=== PATIENT | male | born 1975 | race Caucasian/White ===

== ENCOUNTER 2023-01-15 08:00 | Outpatient (RCR) | payer OTHER ==
[2022-12-22 09:41] VITALS: BP 120/77; PULSE 69; TEMP 98.3
--- NOTE | 2022-12-22 11:15 | NUR ---
Pt remained in room following initial rocephin administration. He tolerated well, no s/s of reaction. PICC wrapped with JULIEN, pt exits dept on knee scooter.
[2022-12-23 08:54] VITALS: BP 156/105; PULSE 80; TEMP 98.5
[2022-12-24 09:03] VITALS: BP 128/88; PULSE 77; TEMP 98.7
[2022-12-25 08:56] VITALS: BP 154/104; PULSE 73; TEMP 98.6
[2022-12-26 09:02] VITALS: BP 142/97; PULSE 75; TEMP 98.1
[2022-12-27 09:25] VITALS: BP 144/104; PULSE 84; TEMP 98.7
[2022-12-27 09:40] LABS: BASO # 0.1 K/mm3 (0.0-0.2); EOS # 0.3 K/mm3 (0.0-0.7); EOS % 6.2 % (0.0-4.0); GRAN # 2.6 K/mm3 (1.4-6.5); GRAN % 53.4 % (42.2-75.2); HEMATOCRIT 42.3 % (42.0-52.0); HEMOGLOBIN 14.6 g/dl (13.5-18.0); LYMPH # 1.5 K/mm3 (1.2-3.4); MEAN CELL VOLUME 91 fl (80.0-100.0); MEAN CORPUSCULAR HEMOGLOBIN 32 pg (27-31); MEAN CORPUSCULAR HGB CONC 35 g/dl (33.0-37.0); MEAN PLATELET VOLUME 10.6 fl (7.4-10.4); MONO # 0.4 K/mm3 (0.1-0.6); MONO % 8.2 % (1.7-9.3); PLATELET COUNT 245 K/mm3 (130-400); RED BLOOD COUNT 4.63 M/mm3 (4.20-5.60); REDCELL DISTRIBUTION WIDTH-CV 12.4 % (11.5-14.5)
[2022-12-27 09:57] LABS: BILIRUBIN,TOTAL 0.8 mg/dL (0.2-1.2); C-REACTIVE PROTEIN 0.04 mg/dL (0.00-0.50); CALCIUM 9.3 mg/dL (8.4-10.2); CREATININE, serum 0.99 mg/dL (0.72-1.25); POTASSIUM 4.2 mmol/L (3.5-4.5); TOTAL PROTEIN 7.2 gm/dL (6.2-8.1)
[2022-12-27 10:13] LABS: ERYTHROCYTE SEDIMENTATION RATE 1 mm/hr (0-15)
[2022-12-28 08:44] VITALS: BP 138/91; PULSE 104; TEMP 98.7
[2022-12-29 08:40] VITALS: BP 129/73; PULSE 97; TEMP 98.1
[2022-12-30 08:18] VITALS: BP 127/89; PULSE 95; TEMP 99
[2022-12-31 08:23] VITALS: BP 125/89; PULSE 101; TEMP 98.6
[2023-01-02 09:06] VITALS: BP 120/85; PULSE 101; TEMP 98
[2023-01-03 08:23] VITALS: BP 123/87; PULSE 101; TEMP 98.5
[2023-01-03 08:31] LABS: HEMATOCRIT 44.2 % (42.0-52.0); HEMOGLOBIN 15.5 g/dl (13.5-18.0); MEAN CELL VOLUME 91 fl (80.0-100.0); MEAN CORPUSCULAR HEMOGLOBIN 32 pg (27-31); MEAN CORPUSCULAR HGB CONC 35 g/dl (33.0-37.0); MEAN PLATELET VOLUME 10.5 fl (7.4-10.4); PLATELET COUNT 235 K/mm3 (130-400); RED BLOOD COUNT 4.87 M/mm3 (4.20-5.60); REDCELL DISTRIBUTION WIDTH-CV 12.2 % (11.5-14.5)
[2023-01-03 08:48] LABS: BILIRUBIN,TOTAL 0.9 mg/dL (0.2-1.2); C-REACTIVE PROTEIN 0.06 mg/dL (0.00-0.50); CALCIUM 9.3 mg/dL (8.4-10.2); CREATININE, serum 1.01 mg/dL (0.72-1.25); POTASSIUM 3.6 mmol/L (3.5-4.5); TOTAL PROTEIN 7.5 gm/dL (6.2-8.1)
[2023-01-03 08:57] LABS: ERYTHROCYTE SEDIMENTATION RATE 1 mm/hr (0-15)
[2023-01-04 15:13] VITALS: BP 162/113; PULSE 120; TEMP 97.6
[2023-01-05 08:12] VITALS: BP 124/96; PULSE 112; TEMP 99
[2023-01-06 08:17] VITALS: BP 131/97; PULSE 109; TEMP 98.4
--- NOTE | 2023-01-07 09:00 | NUR ---
Pt called as he has not arrived yet for today's infusion. He states he just woke up, asks if he can come later this afternoon. Importance of keeping as close to daily schedule time as possible reviewed with pt. He expresses understanding and states he'll be in as soon as he's able.
[2023-01-07 13:15] VITALS: BP 155/102; PULSE 120; TEMP 98.4
[2023-01-08 08:47] VITALS: BP 120/88; PULSE 103; TEMP 98.2
[2023-01-09 08:40] VITALS: BP 163/82; PULSE 109; TEMP 98
[2023-01-10 08:21] VITALS: BP 119/87; PULSE 105; TEMP 98.8
[2023-01-10 08:40] LABS: BASO % 0.8 % (0.0-2.0); EOS # 0.1 K/mm3 (0.0-0.7); EOS % 3.4 % (0.0-4.0); GRAN # 2.2 K/mm3 (1.4-6.5); GRAN % 56.3 % (42.2-75.2); HEMATOCRIT 41.2 % (42.0-52.0); HEMOGLOBIN 14.9 g/dl (13.5-18.0); LYMPH # 1.1 K/mm3 (1.2-3.4); LYMPH % 28.4 % (20.0-51.0); MEAN CELL VOLUME 88 fl (80.0-100.0); MEAN CORPUSCULAR HEMOGLOBIN 32 pg (27-31); MEAN CORPUSCULAR HGB CONC 36 g/dl (33.0-37.0); MEAN PLATELET VOLUME 10.4 fl (7.4-10.4); MONO # 0.4 K/mm3 (0.1-0.6); MONO % 10.6 % (1.7-9.3); PLATELET COUNT 226 K/mm3 (130-400); REDCELL DISTRIBUTION WIDTH-CV 12.1 % (11.5-14.5)
[2023-01-10 09:00] LABS: ALBUMIN 4.4 gm/dL (3.5-5.0); BILIRUBIN,TOTAL 1.7 mg/dL (0.2-1.2); C-REACTIVE PROTEIN 0.11 mg/dL (0.00-0.50); CALCIUM 9.5 mg/dL (8.4-10.2); CREATININE, serum 1.04 mg/dL (0.72-1.25); TOTAL PROTEIN 7.6 gm/dL (6.2-8.1)
[2023-01-10 09:01] LABS: ERYTHROCYTE SEDIMENTATION RATE 4 mm/hr (0-15)
[2023-01-11 08:23] VITALS: BP 116/88; PULSE 90; TEMP 98.6
[2023-01-12 08:16] VITALS: BP 110/76; PULSE 87; TEMP 98.5
[2023-01-13 07:24] VITALS: BP 113/80; PULSE 80; TEMP 98.9
[2023-01-14 08:00] VITALS: BP 111/82; PULSE 79; TEMP 98.1
[~2023-01-15] VITALS: Ht 180.3 cm; Wt 117.8 kg
[~2023-01-15 08:00] MED LIST: ADDERALL XR30 MG PO; BUSPAR DIVIDOSE15 MG PO; COMPLETE MULTI1 TAB PO; HCTZ 25MG TAB25 MG PO; MOBIC15 MG PO; PERIACTIN 4MG TA4 MG PO; PHARMASSURE CHE30 MG PO; PRILOTC PO; PROBIOTIC BLEN1 EACH PO; ROCEPHIN 2GM VIAL21 IV; ZOLOFT 25MG25 MG PO
[2023-01-15 08:12] VITALS: BP 119/83; PULSE 78; TEMP 98.2
[2023-02-01] MEDS ORDERED: MOBIC15 MG PO (08:12)
== END 2023-01-15 08:16 | disposition home or self-care (01) ==
LOC: EUO 08:00
PROVIDERS: Internal Medicine
DX: Z45.2 Encounter for adjustment and management of vascular access device (principal); M86.172 Other acute osteomyelitis, left ankle and foot
CPT/HCPCS: C1751; J0696

== ENCOUNTER 2023-02-04 08:00 | Outpatient (RCR) | payer OTHER ==
[2023-01-16 08:50] VITALS: BP 116/87; PULSE 80; TEMP 98.7
[2023-01-17 08:16] LABS: BASO % 1.1 % (0.0-2.0); EOS # 0.3 K/mm3 (0.0-0.7); EOS % 8.2 % (0.0-4.0); GRAN # 1.9 K/mm3 (1.4-6.5); GRAN % 49.8 % (42.2-75.2); HEMATOCRIT 38.9 % (42.0-52.0); LYMPH # 1.2 K/mm3 (1.2-3.4); LYMPH % 30.3 % (20.0-51.0); MEAN CELL VOLUME 89 fl (80.0-100.0); MEAN CORPUSCULAR HEMOGLOBIN 32 pg (27-31); MEAN CORPUSCULAR HGB CONC 36 g/dl (33.0-37.0); MEAN PLATELET VOLUME 10.5 fl (7.4-10.4); MONO # 0.4 K/mm3 (0.1-0.6); MONO % 10.3 % (1.7-9.3); PLATELET COUNT 203 K/mm3 (130-400); RED BLOOD COUNT 4.39 M/mm3 (4.20-5.60); REDCELL DISTRIBUTION WIDTH-CV 12.5 % (11.5-14.5)
[2023-01-17 08:30] LABS: ALBUMIN 3.8 gm/dL (3.5-5.0); BILIRUBIN,TOTAL 1.2 mg/dL (0.2-1.2); C-REACTIVE PROTEIN 0.03 mg/dL (0.00-0.50); CREATININE, serum 0.87 mg/dL (0.72-1.25); POTASSIUM 3.6 mmol/L (3.5-4.5); TOTAL PROTEIN 6.6 gm/dL (6.2-8.1)
[2023-01-17 10:16] LABS: ERYTHROCYTE SEDIMENTATION RATE 2 mm/hr (0-15)
[2023-01-17 14:17] VITALS: BP 142/100; PULSE 93; TEMP 98.8
[2023-01-18 08:00] VITALS: BP 120/80; PULSE 85; TEMP 98.4
[2023-01-19 07:54] VITALS: BP 122/84; PULSE 82; TEMP 98.6
[2023-01-20 07:55] VITALS: BP 112/79; PULSE 85; TEMP 98.4
[2023-01-21 08:02] VITALS: BP 129/91; PULSE 75; TEMP 98.5
[2023-01-22 08:19] VITALS: BP 125/87; PULSE 75; TEMP 98.5
[2023-01-23 07:44] VITALS: BP 107/65; PULSE 90; TEMP 98.3
[2023-01-24 08:03] VITALS: BP 119/82; PULSE 89; TEMP 98.3
[2023-01-24 08:21] LABS: BASO # 0.1 K/mm3 (0.0-0.2); BASO % 1.7 % (0.0-2.0); EOS # 0.2 K/mm3 (0.0-0.7); EOS % 5.3 % (0.0-4.0); GRAN # 1.8 K/mm3 (1.4-6.5); HEMATOCRIT 41.3 % (42.0-52.0); HEMOGLOBIN 14.8 g/dl (13.5-18.0); LYMPH # 1.2 K/mm3 (1.2-3.4); LYMPH % 32.6 % (20.0-51.0); MEAN CELL VOLUME 89 fl (80.0-100.0); MEAN CORPUSCULAR HEMOGLOBIN 32 pg (27-31); MEAN CORPUSCULAR HGB CONC 36 g/dl (33.0-37.0); MEAN PLATELET VOLUME 10.6 fl (7.4-10.4); MONO # 0.4 K/mm3 (0.1-0.6); MONO % 10.1 % (1.7-9.3); PLATELET COUNT 230 K/mm3 (130-400); RED BLOOD COUNT 4.63 M/mm3 (4.20-5.60); REDCELL DISTRIBUTION WIDTH-CV 12.6 % (11.5-14.5)
[2023-01-24 08:40] LABS: ALBUMIN 3.8 gm/dL (3.5-5.0); BILIRUBIN,TOTAL 1.1 mg/dL (0.2-1.2); C-REACTIVE PROTEIN 0.06 mg/dL (0.00-0.50); CALCIUM 8.8 mg/dL (8.4-10.2); CREATININE, serum 0.9 mg/dL (0.72-1.25); POTASSIUM 3.5 mmol/L (3.5-4.5); TOTAL PROTEIN 6.8 gm/dL (6.2-8.1)
[2023-01-24 08:47] LABS: ERYTHROCYTE SEDIMENTATION RATE 1 mm/hr (0-15)
[2023-01-25 07:36] VITALS: BP 120/81; PULSE 90; TEMP 98.7
[2023-01-26 07:40] VITALS: BP 120/82; PULSE 86; TEMP 98.3
[2023-01-27 07:55] VITALS: BP 128/90; PULSE 88; TEMP 98.8
--- NOTE | 2023-01-28 13:08 | NUR ---
Messages left on pt's phone at [phone] & 1300, as pt has not reported for daily ABX or called unit for update.
--- NOTE | 2023-01-30 10:30 | NUR ---
[facility] NOTIFIED THIS [employer] LAB[employer]ER THAT THIS IS THE THIRD DAY IN A ROW THAT PATIENT HAS NOT SHOWN UP FOR OUTPATIENT INFUSION, WHICH [facility]AFF FEELS LIKE IS VERY NOT LIKE PATIENT TO NOT NOTIFY THEM. MULTIPLE PHONE CALLS HAVE BEEN ATTEMPTED BY STAFF TO GET IN CONTACT WITH PATIENT WITH NO SUCCESS. PATIENT'S FACESHEET SHOWS THAT [place], AND THIS RN NOTIFIED MP THAT PATIENT HAS NOT SHOWN UP FOR APPOINTMENTS, AND THEY VERBALIZED THEY WILL DO A WELFARE CHECK TO PATIENT'S APARTMENT.
--- NOTE | 2023-01-30 12:07 | NUR ---
FT. ADAM GRANT CALLED BACK AND STATE THAT THEY WENT TO THE ADDRESS THAT IS LISTED ON PATIENT DEMOGRAPHICS. JUANITA STATED THAT THE PATIENT NO LONGER LIVES THERE AND THE CURRENT RESIDENTS STATE THAT HE HAS NOT LIVED THERE IN MONTHS.
[2023-01-31 08:11] VITALS: BP 134/95; PULSE 94; TEMP 98.6
[2023-01-31 08:29] LABS: BASO % 0.8 % (0.0-2.0); EOS # 0.1 K/mm3 (0.0-0.7); EOS % 2.8 % (0.0-4.0); GRAN # 2.8 K/mm3 (1.4-6.5); GRAN % 56.5 % (42.2-75.2); HEMATOCRIT 42.6 % (42.0-52.0); LYMPH # 1.5 K/mm3 (1.2-3.4); LYMPH % 29.7 % (20.0-51.0); MEAN CELL VOLUME 90 fl (80.0-100.0); MEAN CORPUSCULAR HEMOGLOBIN 32 pg (27-31); MEAN CORPUSCULAR HGB CONC 35 g/dl (33.0-37.0); MEAN PLATELET VOLUME 10.5 fl (7.4-10.4); MONO # 0.5 K/mm3 (0.1-0.6); MONO % 9.8 % (1.7-9.3); PLATELET COUNT 223 K/mm3 (130-400); RED BLOOD COUNT 4.72 M/mm3 (4.20-5.60); REDCELL DISTRIBUTION WIDTH-CV 12.1 % (11.5-14.5)
[2023-01-31 08:40] LABS: ALBUMIN 4.3 gm/dL (3.5-5.0); BILIRUBIN,TOTAL 2.8 mg/dL (0.2-1.2); C-REACTIVE PROTEIN 0.37 mg/dL (0.00-0.50); CALCIUM 9.4 mg/dL (8.4-10.2); CREATININE, serum 0.97 mg/dL (0.72-1.25); POTASSIUM 3.4 mmol/L (3.5-4.5); TOTAL PROTEIN 7.5 gm/dL (6.2-8.1)
[2023-01-31 08:55] LABS: ERYTHROCYTE SEDIMENTATION RATE 2 mm/hr (0-15)
[2023-02-01 08:10] VITALS: BP 114/76; PULSE 98; TEMP 98.4
[2023-02-02 08:28] VITALS: BP 116/88; PULSE 95; TEMP 98.2
[2023-02-03 07:53] VITALS: BP 109/77; PULSE 81; TEMP 98.7
[~2023-02-04] VITALS: Ht 180.3 cm; Wt 121.6 kg
[~2023-02-04 08:00] MED LIST changes: +CELEBREX 200MG200 MG PO
[2023-02-04 08:21] VITALS: BP 136/86; PULSE 88; TEMP 98.1
== END 2023-02-04 09:12 | disposition home or self-care (01) ==
LOC: EUO 08:00
PROVIDERS: Podiatrist
DX: M86.172 Other acute osteomyelitis, left ankle and foot (principal); L03.116 Cellulitis of left lower limb; L97.522 Non-pressure chronic ulcer of other part of left foot with fat layer exposed
CPT/HCPCS: J0696